=== PATIENT | female | born 1970 | race Caucasian/White ===

== ENCOUNTER → 2016-11-02 | Outpatient (CLI) | payer BC ==
--- NOTE | 2016-11-02 10:40 | WWHP ---
DATE OF SERVICE: 11/02/2016 CHIEF COMPLAINT: The patient is here for her routine gynecologic exam. HPI: This is a 46-year-old G2, P2 with an LMP of 2011. She is status post vaginal hysterectomy for benign reasons. She does occasionally feel warm at times but is not having regular hot flashes. She is without gynecologic complaints. Past medical history is unremarkable. MEDICATIONS: None. Allergies to PENICILLIN and LEVAQUIN. 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 SOCIAL HISTORY: She denies tobacco and drug use and has about one alcoholic drink per week. 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 REVIEW OF SYSTEMS: She has lost about 10 pounds over the last year. She states most it was lost over the past 2 months following getting braces and she has not been able to eat very well because of the braces. She denies respiratory or cardiac problems. GI: She has noticed some change with her bowel movements over the last couple of months and some stools have floated. She thinks this may be related to her dietary changes over the last couple of months. PHYSICAL EXAM: Blood pressure 122/82. Height 5 feet 7 inches. Weight 128 pounds. Temperature 97.9, pulse 63. This a well-developed, well-nourished white female who is alert and oriented x3, in no acute distress. HEENT is within normal limits. Neck is supple without mass or thyromegaly. Chest and lungs clear to auscultation. HEART: Regular rate and rhythm. Breasts are without mass or discharge. Axillary exam is negative for adenopathy. BACK: Negative for CVA tenderness. ABDOMEN: Soft, nontender, without palpable masses. PELVIC EXAM: Normal external genitalia. Vagina appears normal without significant atrophy or prolapse. Bimanual exam is negative for mass or tenderness. Rectovaginal exam is negative for mass or tenderness and is negative for occult blood. EXTREMITIES: Nontender. IMPRESSION: A 46-year-old female, who is status post vaginal hysterectomy for benign reasons with normal gynecologic exam. PLAN: 1. Pap smears have been discontinued. 2. Self breast examination was discussed. 3. She had a mammogram done earlier this year which was benign, per the patient. This was done at [facility]. 4. Osteoporosis prevention was discussed. 5. She will return in one year and she states she will plan on doing mammograms here next year.
== END | disposition home or self-care (01) ==
LOC: WWCWWP 08:05
PROVIDERS: ATTEND Obstetrics & Gynecology
DX: Z53.9 Procedure and treatment not carried out, unspecified reason (principal)

== ENCOUNTER → 2017-12-14 | Outpatient (CLI) | payer BC ==
[2017-12-14 10:15] VITALS: BP 105/69; PULSE 61; TEMP 98.1; BMI 21.1
--- NOTE | 2017-12-14 10:59 | P.HPOB ---
History of Present Illness H&P Date: 12/14/17 Chief Complaint: The patient is here for her routine gynecologic exam. This is a 47-year-old with an LMP of 2011. She is status post vaginal hysterectomy for benign reasons. The patient is without gynecologic complaints at this time. She denies any significant hot flashes at this time. Review of Systems The patient has gained 7 pounds over the last year. She denies respiratory, cardiac, or G.I. problems. She did have some constipation and issues with hemorrhoids a few months ago, but this resolved with dietary changes. 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 - Past Family History Father Family Medical History: Cancer (Bladder), Coronary Artery Disease (CAD) Medications and Allergies Home Medications Medication Instructions Recorded Confirmed Type No Known Home Medications 12/14/17 12/14/17 History Allergies Allergy/AdvReac Type Severity Reaction Status Date / Time levofloxacin [From Levaquin] Allergy Dyspnea Verified 12/14/17 10:56 Penicillins AdvReac Rash/Hives Unverified 12/14/17 10:11 Exam Vital Signs Temp Pulse BP 12/14/17 10:12 98.1 F 61 105/69 Intake and Output 12/13/17 12/14/17 12/14/17 22:59 06:59 14:59 Other: Weight 61.235 kg Height 5 feet 7, BMI 21.1. This is a well-developed well-nourished white female who is alert and oriented times 3 in no acute distress. HEENT: Within normal limits. NECK: Supple without mass or thyromegaly. CHEST AND LUNGS: Clear to auscultation. HEART: Regular rate and rhythm. BREASTS: Are without mass or discharge. AXILLARY EXAM: Negative for adenopathy. BACK: Negative for CVA tenderness. ABDOMEN: Soft, nontender, without palpable masses. PELVIC EXAM: External genitalia appears normal without significant atrophy. Vagina appears normal. There is no evidence of prolapse. Bimanual examination is negative for mass or tenderness. RECTAL EXAM: Rectovaginal exam is negative for mass or tenderness and is negative for occult blood. EXTREMITIES: Nontender. IMPRESSION: 1. 47-year-old female who is status post vaginal hysterectomy for benign reasons with normal gynecologic exam. PLAN: 1. Pap smears have been discontinued. 2. Self breast awareness was discussed. 3. Mammogram was done in October [address] [facility] and was normal per the patient. 4. Osteoporosis prevention was discussed. 5. She will return in one year.
== END | disposition home or self-care (01) ==
LOC: WWCWWP 09:41
PROVIDERS: ATTEND Obstetrics & Gynecology
DX: Z53.9 Procedure and treatment not carried out, unspecified reason (principal)